=== PATIENT | male | born 1950 | race African-American/Black ===

== ENCOUNTER 2019-11-08 17:52 | Observation (INO) ==
[2019-11-08 18:48] LABS: Hematocrit 30.3 % (37.5-50.1); Hemoglobin 9.5 g/dL (12.9-16.9); Mean Corpuscular HGB Conc 31.4 g/dL (31.6-35.5); Mean Corpuscular Hemoglobin 28.1 pg (28.0-33.3); Mean Corpuscular Volume 89.6 fL (83.0-100.0); Mean Platelet Volume 10.5 fL (9.4-12.4); Platelet Count 271 K/mcL (140-400); Red Blood Count 3.38 M/mcL (4.19-5.50); Red Cell Distribution Width 15.9 % (11.5-14.5); White Blood Count 8.6 K/mcL (4.3-11.1)
[2019-11-08 19:19] LABS: Calcium 8.4 mg/dL (8.6-10.3); Potassium 3.9 mEq/L (3.5-5.1)
[2019-11-08 19:44] LABS: Bilirubin,Urine Negative (Negative); Blood,Urine Trace (Negative); Clarity,Urine Clear (Clear); Color,Urine Yellow (Yellow); Glucose,Urine (UA) Normal (Normal); Ketones,Urine Negative (Negative); Leukocyte Esterase,Urine Small (Negative); Nitrite,Urine Negative (Negative); Protein,Urine >=300 mg/dL (Neg-Trace); Specific Gravity,Urine 1.016 (1.010-1.025); Urobilinogen,Urine Normal (Normal)
[2019-11-08 19:46] LABS: Bacteria,Urine None Seen per hpf (None-Few); Hyaline Casts,Urine None Seen per lpf (None-Few); Squamous Epithelial Cell,Urine Many per lpf (None-Few); WBC,Urine 0-3 per hpf (0-3)
[2019-11-08] MEDS ORDERED: 0.9 % Sodium Chloride 1,000 ML IVC ONE ×2 (20:14→20:15)
[2019-11-08] MEDS ORDERED: Naloxone 0.4 MG/ML INJ IVP PRN (23:18)
[2019-11-08] MEDS ORDERED: Acetaminophen 325 MG TABLET PO PRN (23:18)
[2019-11-08] MEDS ORDERED: Ondansetron 4 MG/2 ML VIAL IVP PRN (23:18)
[2019-11-08] MEDS ORDERED: Dextrose Gel 15 GM/37.5 ML TUBE PO PRN ×2 (23:28)
[2019-11-08] MEDS ORDERED: *HR* Dextrose 50 % in Water (Syg) 50 ML SYRINGE IVP PRN (23:28)
[2019-11-08] MEDS ORDERED: D5% in Water 1,000 ML IVC PRN (23:28)
[2019-11-09] MEDS: Insulin LISPRO 300 UNITS/3 ML VIAL SQ SCH ×5 (00:38→21:18)
[2019-11-09] MEDS: *HR* Heparin 5,000 UNIT/ML VIAL SQ SCH ×4 (00:38→21:24)
[2019-11-09] MEDS: 0.9 % Sodium Chloride 1,000 ML IVC SCH ×4 (00:39→21:24)
[2019-11-09 02:09] LABS: Protein/Creatinine Ratio,Urine 4.72 mg/mg (0.00-0.20)
[2019-11-09 06:26] LABS: Basophils % 0.4 %; Eosinophils # 0.1 K/mcL (0.0-0.6); Eosinophils % 1.1 %; Hematocrit 24.3 % (37.5-50.1); Immature Granulocytes % 0.8 % (0-4); Lymphocytes # 0.8 K/mcL (0.6-4.6); Lymphocytes % 14.2 %; Mean Corpuscular HGB Conc 31.3 g/dL (31.6-35.5); Mean Corpuscular Hemoglobin 26.8 pg (28.0-33.3); Mean Corpuscular Volume 85.6 fL (83.0-100.0); Mean Platelet Volume 10.8 fL (9.4-12.4); Monocytes # 0.8 K/mcL (0.0-1.3); Monocytes % 14.2 %; Neutrophils # 3.7 K/mcL (1.6-8.9); Platelet Count 235 K/mcL (140-400); Red Blood Count 2.84 M/mcL (4.19-5.50); Red Cell Distribution Width 15.7 % (11.5-14.5); Segmented Neutrophils % 69.3 %; White Blood Count 5.3 K/mcL (4.3-11.1)
[2019-11-09 06:28] LABS: Hemoglobin 7.6 g/dL (12.9-16.9)
[2019-11-09 06:48] LABS: Calcium 7.4 mg/dL (8.6-10.3); Chol/HDL Ratio 1.9 (0-4.9); Magnesium 1.8 mg/dL (1.6-2.6); Phosphorous 4.3 mg/dL (2.7-4.5); Potassium 4.2 mEq/L (3.5-5.1)
[2019-11-09 06:59] LABS: % Iron Saturation 12 % (20-55); Iron 39 mcg/dL (65-175); Transferrin 224 mg/dL (203-362)
[2019-11-09 07:07] LABS: Ferritin 33 ng/mL (20-250)
[2019-11-09 07:13] LABS: Folate 8.6 ng/mL (3.0-16.0)
[2019-11-09 08:04] LABS: Estimated Average Glucose 157 mg/dl
[2019-11-09] MEDS ORDERED: Iron Sucrose Complex 400 MG in 0.9 % Sodium Chloride 250 ML IVPB ONE (08:39)
[2019-11-09 08:42] LABS: Complement C3 80 mg/dL (87-200)
[2019-11-09 09:04] LABS: Uric Acid 9.1 mg/dL (2.3-7.6)
[2019-11-09 13:42] LABS: Creatinine,Urine 68 mg/dL; Microalbumin,Urine > 1350 mg/L; Sodium, Urine 82.9 mEq/L
[2019-11-09 13:53] LABS: Hematocrit 25.8 % (37.5-50.1)
[2019-11-09] MEDS: amLODIPine 5 MG TABLET PO SCH (17:00)
[2019-11-10 01:57] LABS: Basophils % 0.3 %; Eosinophils # 0.2 K/mcL (0.0-0.6); Eosinophils % 4.1 %; Hematocrit 24.1 % (37.5-50.1); Hemoglobin 7.6 g/dL (12.9-16.9); Immature Granulocytes % 0.5 % (0-4); Lymphocytes % 16.9 %; Mean Corpuscular HGB Conc 31.5 g/dL (31.6-35.5); Mean Corpuscular Hemoglobin 27.1 pg (28.0-33.3); Mean Corpuscular Volume 86.1 fL (83.0-100.0); Monocytes # 0.8 K/mcL (0.0-1.3); Monocytes % 14.3 %; Neutrophils # 3.7 K/mcL (1.6-8.9); Platelet Count 225 K/mcL (140-400); Red Cell Distribution Width 15.8 % (11.5-14.5); Segmented Neutrophils % 63.9 %; White Blood Count 5.8 K/mcL (4.3-11.1)
[2019-11-10 02:13] LABS: Calcium 7.5 mg/dL (8.6-10.3); Magnesium 1.7 mg/dL (1.6-2.6); Phosphorous 3.7 mg/dL (2.7-4.5); Potassium 4.3 mEq/L (3.5-5.1)
[2019-11-10] MEDS: *HR* Heparin 5,000 UNIT/ML VIAL SQ SCH ×3 (06:40→21:37)
[2019-11-10] MEDS: Insulin LISPRO 300 UNITS/3 ML VIAL SQ SCH ×4 (07:22→21:36)
[2019-11-10] MEDS: amLODIPine 5 MG TABLET PO SCH (08:34)
[2019-11-10] MEDS ORDERED: Calcium Gluconate 1gm/50mL 1 GM/50 ML BAG IVPB ONE (10:19)
[2019-11-10] MEDS: Cyanocobalamin (B-12) 1,000 MCG TABLET PO SCH (11:22)
[2019-11-10] MEDS ORDERED: Insulin NPH/REG 70/30 100 UNIT/ML (x5UNIT) SQ SCH (18:00)
[2019-11-11 01:39] LABS: Potassium 4.1 mEq/L (3.5-5.1)
[2019-11-11] MEDS: *HR* Heparin 5,000 UNIT/ML VIAL SQ SCH (06:34)
[2019-11-11 07:18] VITALS: BP 157/79
[2019-11-11] MEDS: Insulin LISPRO 300 UNITS/3 ML VIAL SQ SCH (08:19)
[2019-11-11] MEDS ORDERED: Insulin NPH/REG 70/30 100 UNIT/ML (x5UNIT) SQ SCH (09:00)
[2019-11-11] MEDS ORDERED: Ergocalciferol (VIT D2) 50,000 UNIT (1.25MG) CAP PO SCH (09:30)
[2019-11-11] MEDS: amLODIPine 5 MG TABLET PO SCH (10:40)
[2019-11-11] MEDS: Cyanocobalamin (B-12) 1,000 MCG TABLET PO SCH (10:40)
== END 2019-11-11 12:40 | disposition home or self-care (01) ==
LOC: EMEROOARM 17:52 → 3BNU 17:52 → SUATTDRO 20:34 → 3BNU 21:26
PROVIDERS: ADMIT Family Medicine; ATTEND Internal Medicine